=== PATIENT | female | born 1990 | race Caucasian/White ===

== ENCOUNTER 2019-02-13 17:56 | Inpatient (IN) ==
[2019-02-13] MEDS ORDERED: OXYTOCIN 30 UNITS/500 ML BAG IV PRN (18:40)
--- NOTE | 2019-02-13 18:44 | History & Physical Report ---
Date of Service February 13, 2019 Assessment & Plan (1) Normal labor and delivery: Term with GBS neg, in labor. Epidural on request. Exp mgmt for now. Present on Admission?: Yes History of Present Illness Chief Complaint: Contractions Primary Care Provider: Renae Mccallum DO 28yo presents at 40 2/7 with contractions every 5 min lasting 1 min and painful. No LOF, no VB, +FM. Preg with GBS neg and Rh neg. Allergies Allergy/AdvReac Type Severity Reaction Status Date / Time No Known Allergies Allergy Unverified 02/13/19 18:14 Home Medications Home Medications Medication Instructions Recorded Confirmed Type lifitegrast [Xiidra] 1 drp OPHTHALMIC (EYE) BID 02/13/19 02/13/19 History vit no.229-yjys-nfrkh 1 tab PO DAILY 02/13/19 02/13/19 History [ Vitamin] valacyclovir [Valtrex] 500 mg PO DAILY 02/13/19 02/13/19 History Patient History Medical History Infertility PCOS (polycystic ovarian syndrome) [place] teeth extracted Social History Preferred Language: [place] Communication Ability: Effective Playground Director Required: No Beliefs That Will Affect Care: None marital status: Sal Silveira Current Living Situation: Spouse Other Information That Helps Us Care for You: No Feels Safe at Home: Yes Safety Concerns: Feels Safe At This Time Smoking Status: Never smoker Hx Alcohol Use: No Hx Substance Use: No Review of Systems All systems reviewed & are unremarkable except as noted in HPI & below Physical Exam 2 Constitutional: WD/WN, vitals as above Eyes: PERRL, conjunctivae normal, anicteric sclerae ENMT: external ear and nose normal, oropharynx normal Neck: supple Respiratory: normal respiratory effort and able to speak in complete se ntences; no respiratory distress Cardiovascular: Rate/Rhythm: regular rate and regular rhythm Extremities: + pedal edema Gastrointestinal (Abdomen): Gravid / AGA, nontender Musculoskeletal: no cyanosis or clubbing, extremities motor strength 5/5 Skin: no rashes, warm and dry Neurologic: patellar DTR's 2+ bilat, sensation intact Psychiatric: A+Ox3, euthymic affect Genitourinary: Speculum/Bimanual Exam: no vaginal lesions, no vaginal bleeding and uterus nontender OB Exam Abdomen: + vertex, + estimated weight (7) and + regular contractions (Q4-5) Manual OB Exam: + cervical dilation 4 cm, + cervical effacement 100% and + station -2 OB Exam Monitor Tracing: + external FHT monitor used, + external uterine monitor used and + category I Lymphatic: no cervical or axillary lymphadenopathy Results & Data Vital Signs (Past 12 Hours) Vital Signs Temp Pulse Resp BP 02/13/19 18:15 37.0 C 20 02/13/19 18:02 77 125/76
[2019-02-13 19:06] LABS: Hematocrit (blood only) 37.5 % (37-47); Hemoglobin 12.9 g/dL (12.0-16.0); Mean Corpuscular Volume 84.8 fL (80-100); Mean Platelet Volume 9.5 fL (7.4-10.4); Platelet Count 163 K/uL (130-400); RDW Coefficient of Variation 13.9 % (11.5-14.5); RDW Standard Deviation 42.8 fL (36.4-46.3); Red Blood Count 4.42 M/uL (4.2-5.4); White Blood Count 13.67 K/uL (4.8-10.8)
[2019-02-13 19:22] LABS: Mean Corpuscular Hgb Conc 34.4 g/dL (32-36)
--- NOTE | 2019-02-13 19:59 | Delivery Summary ---
Vaginal Delivery Summary Date of Service February 13, 2019 Vaginal Delivery Summary DIAGNOSES: 1. Ashraf intrauterine at term gestation. 2. PROM/IOL. 3. Group B Streptococcus Neg. PROCEDURE: Spontaneous vaginal delivery and repair of 2nd degree laceration. SURGEON: Ashlie Head MD. LINE LEAD: None. ESTIMATED BLOOD LOSS: 500 mL. COMPLICATIONS: None. PLACENTA: Spontaneous and intact with a 3-vessel cord. DISPOSITION: Stable to labor and delivery. DESCRIPTION: The patient pushed well and brought the head to in OA position. The infant's head was allowed to deliver with contraction force and no further active pushing, with the perineum protected during this time. The shoulders delivered easily with a maternal pushing effort. There was no nuchal cord. The right shoulder was anterior. The shoulders and body delivered with Jocelin position and one additional pushing effort, and the was placed on the maternal abdomen. It was vigorous and moving all extremities, and making respiratory efforts. The cord was doubly clamped by the MD and then cut by the FOB. The placenta delivered spontaneously and was noted to be intact and with a 3VC. The cervix, vagina and perineum were examined and were found to have a second degree laceration, which was repaired in the usual manner with vicryl suture including a crown suture to rebuild the perineal body, and a rectal exam to rule out injury or suture. The fundus was firm and lochia minimal immediately after delivery.
--- NOTE | 2019-02-13 20:42 | Labor Progress Brief Note ---
Date of Service February 13, 2019 Subjective Reason For Note: Routine Evaluation Tolerating Contractions Assessment & Plan (1) Normal labor and delivery: Continues to progress spontaneously, fluid now leaking clear, and epidural not yet desired. Present on Admission?: Yes Physical Exam Genitourinary: Manual OB Exam: + cervical dilation 6 cm, + cervical effacement 100%, + station -1 and + amniotic fluid (SROM during exam) clear OB Exam Monitor Tracing: + external FHT monitor used, + external uterine monitor used and + category I Results & Data Vital Signs (Past 12 Hours) Vital Signs Temp Pulse Resp BP 02/13/19 19:00 20 02/13/19 18:30 18 02/13/19 18:15 37.0 C 20 02/13/19 18:02 77 125/76
[2019-02-13] MEDS: LACTATED RINGER'S 1,000 ML IV PRN ×2 (21:08→22:14)
[2019-02-13] MEDS ORDERED: ePHEDrine sulfate 50 MG/ML AMP ONE ×2 (21:09→22:09)
[2019-02-13] MEDS ORDERED: BUPIVACAINE 0.25% 30 ML VIAL ONE ×2 (21:09→22:09)
[2019-02-13] MEDS ORDERED: fentaNYL 2MCG/ML ROPIV 1.25MG/ML 100 ML BAG EPI ONE ×2 (21:10→22:10)
[2019-02-13] MEDS ORDERED: fentaNYL citrate 100 MCG/2 ML VIAL ONE ×2 (21:10→22:10)
[2019-02-13] MEDS ORDERED: ePHEDrine sulfate 50 MG/ML AMP IV PRN (22:16)
[2019-02-13] MEDS ORDERED: NALOXONE HCL 0.4 MG/1 ML VIAL/CARP IV PRN (22:16)
[2019-02-13] MEDS ORDERED: fentaNYL 2MCG/ML ROPIV 1.25MG/ML 100 ML BAG EPI PRN (22:16)
[2019-02-13] MEDS ORDERED: NALBUPHINE HCL INJ 10 MG/ML AMP IV PRN (22:16)
[2019-02-13] MEDS ORDERED: PROMETHAZINE HCL 6.25 MG in SODIUM CHLORIDE 0.9% 50 ML IV PRN (22:16)
[2019-02-13] MEDS ORDERED: ONDANSETRON INJ 2 MG/ML 2 ML VIAL IV PRN (22:16)
[2019-02-13] MEDS ORDERED: NALOXONE HCL 1 MG in SODIUM CHLORIDE 0.9% 1000ML 1,000 ML IV PRN (22:16)
[2019-02-13] MEDS ORDERED: DiphenhydrAMINE HCL 50 MG/ML VIAL IV PRN (22:16)
--- NOTE | 2019-02-13 22:16 | Anesthesiology Consultation ---
Date of Service February 13, 2019 @ 40.2 Assessment & Plan (1) Encounter for pre-operative examination: Chart Review Chart Review: Acceptable Risk for Surgery and Patient NOT seen in Pre Admission Testing Consults Requested none ASA ASA2 Proposed Anesthesia Anesthesia Type: Labor Epidural Risk / Benefits Reviewed With: PT / POA / Parent / Guardian, Accepts Plan and Informed Consent Obtained History Height/Weight Height: 5 ft 6 in Weight: 83.007 kg Allergies Allergy/AdvReac Type Severity Reaction Status Date / Time No Known Allergies Allergy Unverified 02/13/19 18:14 Medications Home Medications Medication Instructions Recorded Confirmed Last Taken lifitegrast [Xiidra] 1 drp OPHTHALMIC (EYE) BID 02/13/19 02/13/19 02/13/19 vit no.052-lzoh-piean 1 tab PO DAILY 02/13/19 02/13/19 02/13/19 [ Vitamin] valacyclovir [Valtrex] 500 mg PO DAILY 02/13/19 02/13/19 02/13/19 Active Medications Generic Name Dose Route Start Last Admin Trade Name Didier PRN Reason Stop Dose Admin Lactated Ringer's 1,000 mls @ 125 mls/hr 02/13/19 18:40 02/13/19 22:14 Lr IV 02/15/19 18:39 999 mls/hr .Q8H PRN Administration L&D Protocol Protocol NPO Date Last Intake of Fluids: 02/13/19 Time Last Intake of Fluids: 20:00 Date Last Intake of Solids: 02/13/19 Time Last Intake of Solids: 12:00 Past Medical History Medical History Infertility PCOS (polycystic ovarian syndrome) [place] teeth extracted Exercise / Class Metabolic Activity II 4-5 Yardwork/Stairs/Walk up hill Past Anesthesia History No Hx of Anesthesia Complications and No Family Hx of Anesthesia Complications History of PONV No Hx of PONV and No Hx of Motion Sickness Social History Smoking Status: Never smoker Hx Alcohol Use: No Hx Substance Use: No substance use type: does not use Physical Exam Vital Signs Last Vital Signs Temp 37.0 C 02/13/19 18:15 Pulse 85 02/13/19 22:13 Resp 20 02/13/19 21:30 BP 102/62 02/13/19 22:13 Pulse Ox 97 02/13/19 22:10 ENMT Mouth: no dentition abnormality Thyromental Distance: > or= 3.5 Finger Breadths Mallampati Class: II Neck normal visual inspection Respiratory normal respiratory effort Auscultation: lungs clear to auscultation bilaterally Cardiovascular Rate/Rhythm: regular rate and regular rhythm Psychiatric Orientation: alert Testing Laboratory Results 02/13/19 18:53
--- NOTE | 2019-02-14 01:39 | Labor Progress Brief Note ---
Date of Service February 14, 2019 Subjective Comfortable with epidural Assessment & Plan (1) Normal labor and delivery: Continue second stage Present on Admission?: Yes Physical Exam Physical Exam: Complete and pushing effectively. scalp visible with pushes. FHT appropriate for second stage. Results & Data Vital Signs (Past 12 Hours) Vital Signs Temp Pulse Resp BP Pulse Ox 02/14/19 01:31 107 H 97 02/14/19 01:28 117 H 103/59 L 02/14/19 01:13 116 H 114/72 02/14/19 01:00 98 H 97 02/14/19 00:59 121 H 142/90 H 85 L 02/14/19 00:55 107 H 93 02/14/19 00:54 100 H 84 L 02/14/19 00:50 104 H 99 02/14/19 00:46 108 H 86 L 02/14/19 00:45 104 H 99 02/14/19 00:43 115 H 115/82 02/14/19 00:40 109 H 99 02/14/19 00:35 89 99 02/14/19 00:30 82 97 02/14/19 00:29 68 102/54 L 02/14/19 00:25 79 98 02/14/19 00:20 76 98 02/14/19 00:15 73 97 02/14/19 00:13 75 111/55 L 02/14/19 00:10 74 99 02/14/19 00:05 73 98 02/14/19 00:00 91 H 99 02/13/19 23:58 84 152/68 H 02/13/19 23:55 80 97 02/13/19 23:50 81 97 02/13/19 23:45 71 97 02/13/19 23:43 77 144/67 H 02/13/19 23:40 77 98 02/13/19 23:35 88 98 02/13/19 23:30 73 97 02/13/19 23:29 60 148/67 H 02/13/19 23:25 66 96 02/13/19 23:20 66 97 02/13/19 23:15 84 98 02/13/19 23:14 67 138/63 02/13/19 23:10 81 99 02/13/19 23:05 76 99 02/13/19 23:00 91 H 20 100 02/13/19 22:57 74 133/61 02/13/19 22:55 70 135/62 99 02/13/19 22:53 37.0 C 78 18 127/58 L 02/13/19 22:51 77 126/59 L 02/13/19 22:50 83 100 02/13/19 22:49 78 127/59 L 02/13/19 22:47 89 128/61 02/13/19 22:45 84 127/62 99 02/13/19 22:43 80 127/56 L 02/13/19 22:41 75 131/61 02/13/19 22:40 74 98 02/13/19 22:39 76 131/61 02/13/19 22:37 80 123/58 L 02/13/19 22:35 85 124/60 99 02/13/19 22:33 82 117/56 L 02/13/19 22:31 74 128/56 L 02/13/19 22:30 80 20 134/63 98 02/13/19 22:25 87 98 02/13/19 22:20 88 99 02/13/19 22:17 87 111/49 L 02/13/19 22:15 36.9 C 81 97/56 L 99 02/13/19 22:13 85 102/62 02/13/19 22:11 75 102/56 L 02/13/19 22:10 80 97 02/13/19 22:09 86 99/58 L 02/13/19 22:07 81 92/55 L 02/13/19 22:05 82 105/59 L 97 02/13/19 22:03 92 H 113/67 02/13/19 22:01 89 94 02/13/19 22:00 85 20 96 02/13/19 21:56 96 H 115/70 02/13/19 21:55 91 H 98 02/13/19 21:30 20 02/13/19 21:00 18 02/13/19 20:30 18 02/13/19 19:00 20 02/13/19 18:30 18 02/13/19 18:15 37.0 C 20 02/13/19 18:02 77 125/76
[2019-02-14] MEDS ORDERED: OXYTOCIN 30 UNITS/500 ML BAG IV PRN (02:58)
[2019-02-14] MEDS ORDERED: BISACODYL 10 MG SUPP PR PRN (02:58)
[2019-02-14] MEDS ORDERED: SUPERCREAM 0.870% 15 GM JAR EXT PRN (02:58)
[2019-02-14] MEDS ORDERED: HYDROCORTISONE ACETATE 25 MG SUPP PR PRN (02:58)
[2019-02-14] MEDS ORDERED: BENZOCAINE 20% AER SPR 82.5 GM CAN EXT PRN (02:58)
[2019-02-14] MEDS ORDERED: ACETAMINOPHEN 325 MG TAB PO PRN (02:58)
[2019-02-14] MEDS ORDERED: DIPHTHERIA/TETANUS/PERTUSSIS 0.5 ML SYR/VIAL IM ONE (02:58)
--- NOTE | 2019-02-14 03:54 | Anesthesia Procedure Note ---
Date of Service February 14, 2019 Anesthesia Post Epidural Note Vital Signs Vital Signs: Temp Pulse Resp BP Pulse Ox 36.8 C 77 18 107/63 98 02/14/19 02:04 02/14/19 03:49 02/14/19 02:48 02/14/19 03:49 02/14/19 02:01 Pain Intensity Lower Abdomen: Pain Intensity: 0 Notes Mental Status: alert / awake / arousable Patient Amnestic to Procedure: Yes Nausea / Vomiting: adequately controlled Pain: adequately controlled Airway Patency, RR, SpO2: stable & adequate BP & HR: stable & adequate Hydration State: stable & adequate Neuraxial Anesthesia: was administered and sensory block resolved Anesthetic Complications: no major complications apparent and Pt Satisfied with anesthetic care Epidural: Removed without complications and With tip intact
--- NOTE | 2019-02-14 04:30 | Delivery Summary ---
Vaginal Delivery Summary Date of Service February 14, 2019 Vaginal Delivery Summary DIAGNOSES: 1. Ashraf intrauterine at term gestation. 2. Spontaneous onset of labor. 3. Group B Streptococcus Neg. PROCEDURE: Spontaneous vaginal delivery without laceration. SURGEON: Ashlie Head MD. ELECTRICAL MACHINE BUILDER: None. ESTIMATED BLOOD LOSS: 250 mL. COMPLICATIONS: None. PLACENTA: Spontaneous and intact with a 3-vessel cord. DISPOSITION: Stable to labor and delivery. DESCRIPTION: The patient pushed well and brought the head to in OA position. The infant's head was allowed to deliver with contraction force and no further active pushing, with the perineum protected during this time. The shoulders delivered easily with a maternal pushing effort. There was no nuchal cord. The shoulders and body delivered without any difficulty, and the infant was placed on the maternal abdomen. It was vigorous and moving all extremities, and making respiratory efforts. The cord was doubly clamped by the MD and then cut by the FOB. The placenta delivered spontaneously and was noted to be intact and with a 3VC. The cervix, vagina and perineum were examined and were found to be without defect requiring repair. The fundus was firm and lochia minimal immediately after delivery.
[2019-02-14] MEDS: PRENATAL VITAMIN 1 TAB PO SCH (08:00)
[2019-02-14] MEDS: DOCUSATE SODIUM 100 MG CAP PO SCH ×2 (08:00→20:12)
[2019-02-14] MEDS: IBUPROFEN 600 MG TAB PO PRN (16:06)
--- NOTE | 2019-02-15 06:39 | Obstetrical Progress Note ---
Date of Service <Priya Morales MD - Last Filed: 02/15/19 06:43> February 15, 2019 Assessment & Plan <Priya Morales MD - Last Filed: 02/15/19 06:43> (1) Normal labor and delivery: Subjective <Priya Morales MD - Last Filed: 02/15/19 06:43> PPD 1 Pt Seen at bedside while . Sitting comfortably, no overnight events. Abdominal pain 4/10 while , negligible otherwise. Has not been up to ambulate yet. Has passed gas, no bowel movements. No dysuria. Constitutional: no fever and no chills Respiratory: no chest congestion and no dyspnea Cardiovascular: no chest pain, no edema and no calf pain Gastrointestinal: + abdominal pain; no nausea, no vomiting and no constipation Genitourinary (female): no dysuria Physical Exam <Priya Morales MD - Last Filed: 02/15/19 06:43> Constitutional WD/WN, vitals as above healthy appearing and comfortable Respiratory normal respiratory effort, lungs clear to auscultation no respiratory distress Auscultation: no crackles, no rales, no rhonchi and no wheezes Cardiovascular RRR, no murmur, no edema Gastrointestinal (Abdomen) Inspection/Auscultation: abdomen normal to inspection, + abdomen distended and normal bowel sounds Percussion/Palpation: abdomen nontender Genitourinary Speculum/Bimanual Exam: + uterus enlarged; uterus nontender OB Exam Abdomen: + fundal height Fundus: + firm and + relation to umbilicus (inferior to umbilicus) Results & Data <Priya Morales MD - Last Filed: 02/15/19 06:43> Vital Signs (Past 12 Hours) Vital Signs Temp Pulse Resp BP Pulse Ox 02/15/19 00:10 36.7 C 67 16 99/62 L 96 02/14/19 19:20 36.6 C 87 18 111/72 97 <Jessica Chowdary MD, FACOG - Last Filed: 02/15/19 07:28> Co-Signing Physician Notes Resident Physician Supervision Note: I interviewed and examined the patient. Discussed with Dr. Morales and agree with findings and plan as documented in the note. Any exceptions or clarifications are listed here: [None] Documented By: Jessica Chowdary MD, FACOG
[2019-02-15 07:20] LABS: Hematocrit (blood only) 36.8 % (37-47); Hemoglobin 12.4 g/dL (12.0-16.0); Mean Corpuscular Volume 86.6 fL (80-100); Mean Platelet Volume 9.5 fL (7.4-10.4); Platelet Count 145 K/uL (130-400); RDW Coefficient of Variation 14.4 % (11.5-14.5); Red Blood Count 4.25 M/uL (4.2-5.4)
[2019-02-15 07:28] LABS: Mean Corpuscular Hgb Conc 33.7 g/dL (32-36)
[2019-02-15] MEDS: IBUPROFEN 600 MG TAB PO PRN ×4 (08:31→19:50)
[2019-02-15] MEDS: PRENATAL VITAMIN 1 TAB PO SCH (08:31)
[2019-02-15] MEDS: DOCUSATE SODIUM 100 MG CAP PO SCH ×2 (08:31→19:49)
[2019-02-15] MEDS ORDERED: BISACODYL 5 MG TABEC PO SCH (20:00)
[2019-02-16] MEDS: IBUPROFEN 600 MG TAB PO PRN ×2 (05:47→13:23)
[2019-02-16 06:50] LABS: Hematocrit (blood only) 36.1 % (37-47); Hemoglobin 11.9 g/dL (12.0-16.0)
--- NOTE | 2019-02-16 07:55 | Obstetrical Progress Note ---
Date of Service <Priya Morales MD - Last Filed: 02/16/19 07:54> February 16, 2019 Assessment & Plan <Priya Morales MD - Last Filed: 02/16/19 07:54> (1) Normal labor and delivery: Subjective <Priya Morales MD - Last Filed: 02/16/19 07:54> Ambulation: ambulating normally Voiding: no voiding problems Passing Gas:: Yes Diet Tolerance:: regular diet Lochia:: Small Feeding Type:: breast feeding Constitutional: no fever, no chills and no weakness Respiratory: no cough, no dyspnea and no pain on inspiration Cardiovascular: + edema; no chest pain, no chest pain at rest and no calf pain Breast: no breast pain Gastrointestinal: + abdominal pain; no nausea, no vomiting, no constipation and no diarrhea/loose stools Genitourinary (female): no dysuria Physical Exam <Priya Morales MD - Last Filed: 02/16/19 07:54> Constitutional WD/WN, vitals as above healthy appearing and comfortable Respiratory normal respiratory effort, lungs clear to auscultation no respiratory distress Auscultation: no crackles, no rales, no rhonchi and no wheezes Cardiovascular RRR, no murmur, no edema Gastrointestinal (Abdomen) Inspection/Auscultation: abdomen normal to inspection, + abdomen distended and normal bowel sounds Percussion/Palpation: abdomen nontender Genitourinary Speculum/Bimanual Exam: + uterus enlarged; uterus nontender OB Exam Abdomen: + fundal height Fundus: + firm and + relation to umbilicus (inferior to umbilicus) Results & Data <Priya Morales MD - Last Filed: 02/16/19 07:54> Vital Signs (Past 12 Hours) Vital Signs Temp Pulse Resp BP 02/15/19 23:40 36.6 C 58 L 18 103/67 <Mirlande Collado DO - Last Filed: 02/16/19 08:03> Co-Signing Physician Notes Resident Physician Supervision Note: I interviewed and examined the patient. Discussed with Dr. Morales and agree with findings and plan as documented in the note. Any exceptions or clarifications are listed here: PPD#2 doing well. DC home today. Documented By: Mirlande Collado DO
[2019-02-16] MEDS: DOCUSATE SODIUM 100 MG CAP PO SCH (08:23)
[2019-02-16] MEDS: PRENATAL VITAMIN 1 TAB PO SCH (08:23)
== END 2019-02-16 13:20 | disposition home or self-care (01) | DRG 807 ==
LOC: OPB 17:56 → 4S1 17:57 → 4S2 02-14 05:24

== ENCOUNTER 2021-08-11 07:44 | Inpatient (IN) ==
[2021-08-11] MEDS ORDERED: OXYTOCIN 30 UNITS/500 ML BAG IV PRN ×3 (09:36→16:03)
--- NOTE | 2021-08-11 09:40 | History & Physical Report ---
Date of Service August 11, 2021 Assessment & Plan (1) : Plan: Admit for IOL. EFM/toco/labs. IV. Will plan for epidural at some point. Agreeable to begin pitocin to obtain better contraction pattern. Admission and Anticipated Discharge Date Admission Date: August 11, 2021 History of Present Illness Chief Complaint: IOL Primary Care Provider: Renae Mccallum DO 31yo @ 40 08/24, IOL for postdates. + movement, no vaginal bleeding, no leaking fluid. Hypothyroid *Check TFTs Q4wks(recurring order) Conceived on Femara Genital HSV--valtrex at 36wks Rh neg Rhogam given 05/19/21 SB had covid vaccinex2, and booster Marginal cord insertion. Flu vaccine received 04/20 OC IOL 08/11 Allergies Allergy/AdvReac Type Severity Reaction Status Date / Time No Known Drug Allergies Allergy Verified 08/10/21 12:54 Home Medications Medication Instructions Recorded Confirmed Type prenat.vits,lakisha,ict-hbut-kovfi 1 tab PO DAILY 12/24/20 08/11/21 History valacyclovir 500 mg tablet 500 mg PO BID #60 tab 06/17/21 08/11/21 Rx (Valtrex) levothyroxine 75 mcg tablet 75 mcg PO .COMPLEX #110 tab 07/16/21 08/11/21 Rx Patient History Medical History (Updated 08/11/21 @ 09:39 by Mirlande Collado DO) History of chicken pox Infertility PCOS (polycystic ovarian syndrome) Surgical History [place] teeth extracted Family History (Updated 12/24/20 @ 14:12 by Kristina Child) Grandmother (Paternal) Breast cancer Brother FH: testicular cancer Denies family history of Ovarian cancer Colorectal cancer Social History (Updated 12/24/20 @ 14:13 by Kristina Child) Smoking Status: Never smoker Hx Alcohol Use: No Hx Substance Use: No Preferred Language: Bengali Communication Ability: Effective 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 Beliefs That Will Affect Care: None marital status: marital status details: Sal Silveira (33) [phone] Current Living Situation: Family Current Living Situation Comment: lives with spouse, daughter, dog current occupational status: employed 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 Other Information That Helps Us Care for You: No Feels Safe at Home: Yes Safety Concerns: Feels Safe At This Time Assistive Devices: None Review of Systems All systems reviewed & are unremarkable except as noted in HPI & below Physical Exam Physical Exam: SVE 4/100/-2 Constitutional: WD/WN, vitals as above Respiratory: normal respiratory effort, lungs clear to auscultation no respiratory distress Cardiovascular: Rate/Rhythm: regular rate and regular rhythm Gastrointestinal (Abdomen): Inspection/Auscultation: abdomen normal to inspection Percussion/Palpation: abdomen soft; abdomen nontender Gravid. No s/s chorio or abruption. Skin: no rashes, warm and dry Psychiatric: A+Ox3, euthymic affect Results & Data ([facility]) Vital Signs (Past 12 Hours) Vital Signs Temp Pulse Resp BP 08/11/21 07:58 117 H 110/70 08/11/21 07:54 37.1 C 117 H 20 110/70 Monitoring External Monitor FHT Cat 1 [place] Q 4-5 Coding Level of Care Code None Diagnoses Z34.90
[2021-08-11 09:56] LABS: Hematocrit (blood only) 35.6 % (37-47); Hemoglobin 11.8 g/dL (12.0-16.0); Mean Corpuscular Hemoglobin 28.9 pg (25-34); Mean Corpuscular Hgb Conc 33.1 g/dL (32-36); Mean Corpuscular Volume 87.3 fL (80-100); Mean Platelet Volume 9.6 fL (7.4-10.4); Platelet Count 165 K/uL (130-400); RDW Coefficient of Variation 14.3 % (11.5-14.5); RDW Standard Deviation 45.1 fL (36.4-46.3); Red Blood Count 4.08 M/uL (4.2-5.4); White Blood Count 13.87 K/uL (4.8-10.8)
[2021-08-11] MEDS: LACTATED RINGER'S 1,000 ML IV PRN ×2 (10:02→12:44)
[2021-08-11] MEDS ORDERED: ePHEDrine sulfate 50 MG/ML AMP ONE (12:09)
[2021-08-11] MEDS ORDERED: SODIUM CHLORIDE 0.9% INJ 10 ML VIAL ONE (12:09)
[2021-08-11] MEDS ORDERED: BUPIVACAINE 0.25% 30 ML VIAL ONE (12:09)
[2021-08-11] MEDS ORDERED: fentaNYL 2MCG/ML ROPIVACAINE 1.25MG/ML 100 ML BAG EPI ONE (12:10)
[2021-08-11] MEDS ORDERED: fentaNYL citrate 100 MCG/2 ML VIAL ONE (12:10)
[2021-08-11] MEDS ORDERED: ONDANSETRON INJ 2 MG/ML 2 ML VIAL IV PRN (12:22)
[2021-08-11] MEDS ORDERED: ePHEDrine sulfate 50 MG/ML AMP IV PRN (12:22)
[2021-08-11] MEDS ORDERED: NALOXONE HCL 0.4 MG/1 ML VIAL/CARP IV PRN (12:22)
[2021-08-11] MEDS ORDERED: NALBUPHINE HCL INJ 10 MG/ML AMP IV PRN (12:22)
[2021-08-11] MEDS ORDERED: fentaNYL 2MCG/ML ROPIVACAINE 1.25MG/ML 100 ML BAG EPI PRN (12:22)
[2021-08-11] MEDS ORDERED: NALOXONE HCL 1 MG in SODIUM CHLORIDE 0.9% 1000ML 1,000 ML IV PRN (12:22)
[2021-08-11] MEDS ORDERED: diphenhydrAMINE 50 MG/ML VIAL IV PRN (12:22)
--- NOTE | 2021-08-11 12:26 | Anesthesiology Consultation ---
Date of Service August 11, 2021 Assessment & Plan (1) Encounter for pre-operative examination: Chart Review Chart Review: Patient NOT seen in Pre Admission Testing and Acceptable Risk for Labor Epidural Consults Requested none History Height/Weight Height: 5 ft 6 in Weight: 84.368 kg Allergies Allergy/AdvReac Type Severity Reaction Status Date / Time No Known Drug Allergies Allergy Verified 08/10/21 12:54 Medications Home Medications Medication Instructions Recorded Confirmed Last Taken prenat.vits,lakisha,unv-yvnv-iacji 1 tab PO DAILY 12/24/20 08/11/21 Unknown valacyclovir 500 mg tablet 500 mg PO BID #60 tab 06/17/21 08/11/21 Unknown (Valtrex) levothyroxine 75 mcg tablet 75 mcg PO .COMPLEX #110 tab 07/16/21 08/11/21 Unknown Active Medications Generic Name Dose Route Start Last Admin Trade Name Freq PRN Reason Stop Dose Admin Oxytocin 30 units in 500 mls @ 7 mls/hr 08/11/21 09:36 08/11/21 11:59 Pitocin IV 08/13/21 09:35 0.42 units/hr .Q24H PRN 7 mls/hr Labor Induction/Augmentation Titration Protocol 0.42 UNITS/HR Lactated Ringer's 1,000 mls @ 125 mls/hr 08/11/21 09:36 08/11/21 12:07 Lr IV 08/13/21 09:35 999 mls/hr .Q8H PRN Infusion L&D Protocol Protocol Past Medical History Medical History History of chicken pox Infertility PCOS (polycystic ovarian syndrome) Exercise / Class Metabolic Activity II 4-5 Yardwork/Stairs/Walk up hill Past Family History Family History Grandmother (Paternal) Breast cancer Brother FH: testicular cancer Denies family history of Ovarian cancer Colorectal cancer Past Surgical History Surgical History [place] teeth extracted Past Anesthesia History No Hx of Anesthesia Complications and No Family Hx of Anesthesia Complications History of PONV No Hx of PONV and No Hx of Motion Sickness Social History Smoking Status: Never smoker Hx Alcohol Use: No Hx Substance Use: No substance use type: does not use and former substance user Physical Exam Vital Signs Last Vital Signs Temp 36.8 C 08/11/21 11:00 Pulse 90 08/11/21 12:41 Resp 20 08/11/21 11:00 BP 124/77 08/11/21 12:06 Pulse Ox 99 08/11/21 12:41 Testing Laboratory Results 08/11/21 09:44
--- NOTE | 2021-08-11 14:53 | Labor Progress Brief Note ---
Date of Service August 11, 2021 Subjective Comfortable with epidural. FHT Cat 1 [place] Q 2 SVE 8/100/-1 AROM clear fluid. Anticipate . Assessment & Plan Admission and Anticipated Discharge Date Admission Date: August 11, 2021 Results & Data ([facility]) Vital Signs (Past 12 Hours) Vital Signs Temp Pulse Resp BP Pulse Ox 08/11/21 14:51 85 08/11/21 14:48 99 H 111/78 08/11/21 14:46 86 98 08/11/21 14:41 78 98 08/11/21 14:36 77 98 08/11/21 14:33 68 110/68 08/11/21 14:31 74 98 08/11/21 14:26 74 98 08/11/21 14:21 73 99 08/11/21 14:18 72 108/65 08/11/21 14:16 69 100 08/11/21 14:11 72 98 08/11/21 14:06 75 98 08/11/21 14:03 71 20 105/58 L 08/11/21 14:01 65 99 08/11/21 13:56 69 98 08/11/21 13:51 79 97 08/11/21 13:48 70 109/61 08/11/21 13:46 73 99 08/11/21 13:41 72 98 08/11/21 13:36 70 97 08/11/21 13:31 76 97 08/11/21 13:29 68 108/63 08/11/21 13:26 66 98 08/11/21 13:24 71 111/62 08/11/21 13:21 66 99 08/11/21 13:20 72 111/64 08/11/21 13:16 68 112/58 L 98 08/11/21 13:11 71 97 08/11/21 13:10 72 114/66 08/11/21 13:06 78 97 08/11/21 13:05 70 20 104/61 08/11/21 13:01 74 98 08/11/21 12:57 80 18 117/72 08/11/21 12:56 89 97 08/11/21 12:55 74 109/64 08/11/21 12:53 83 115/66 08/11/21 12:51 83 110/67 95 08/11/21 12:49 80 110/64 08/11/21 12:48 89 94 08/11/21 12:47 81 108/62 08/11/21 12:46 80 96 08/11/21 12:45 82 110/64 08/11/21 12:43 74 115/68 08/11/21 12:42 80 113/70 08/11/21 12:41 90 99 08/11/21 12:36 89 99 08/11/21 12:31 96 H 99 08/11/21 12:26 89 97 08/11/21 12:25 91 H 94 08/11/21 12:21 86 96 08/11/21 12:17 86 93 08/11/21 12:16 86 94 08/11/21 12:11 94 H 96 08/11/21 12:06 92 H 124/77 98 08/11/21 11:00 36.8 C 86 20 122/69 08/11/21 07:58 117 H 110/70 08/11/21 07:54 37.1 C 117 H 20 110/70 Coding Level of Care Code None
--- NOTE | 2021-08-11 15:35 | Delivery Summary ---
Vaginal Delivery Summary Date of Service August 11, 2021 Vaginal Delivery Summary [facility] Vaginal Delivery Summary: Pre-delivery diagnoses: 31yo @ 40 08/24, IOL for postdates, hypothyroidism, conception on Femara Post-delivery diagnoses: same Procedure: spontaneous vaginal delivery Surgeon: Mirlande Collado DO Complications: none Findings: Viable male . Apgars and weight pending, please see nursery records. Estimated blood loss: 300ml Description of delivery: The patient progressed to complete with epidural anesthesia. She then began to push. She spontaneously vaginally delivered a viable from the cephalic presentation. The head delivered in ROMMEL position. The anterior shoulder and arm delivered, followed by the posterior shoulder, followed by the body. The baby was placed on mother's abdomen and a spontaneous cry was heard. Delayed cord clamping was employed, and the cord was doubly clamped and cut. Cord blood was obtained. The placenta was delivered spontaneously intact with a 3-vessel cord. The uterus and vagina were swept of clots and debris. IV pitocin was given. The uterus became firm. The cervix, vagina, and perineum were inspected and no lacerations were noted. Excellent hemostasis was observed. The mother and baby are recovering in stable and good condition in the room. Sponge and instrument counts were correct x 2. Mirlande Collado DO [facility] Vag[facility] Delivery Charge Vaginal Delivery Codes: 19579 global code for the antepartum, delivery, and post- Delivery Type Details: [facility]
--- NOTE | 2021-08-11 16:02 | Anesthesia Procedure Note ---
Date of Service August 11, 2021 Anesthesia Post Epidural Note Vital Signs Vital Signs: Temp Pulse Resp BP Pulse Ox 36.8 C 78 20 115/59 L 99 08/11/21 14:48 08/11/21 15:47 08/11/21 14:48 08/11/21 15:47 08/11/21 15:31 Pain Intensity Bilateral Lower Abdomen: Pain Intensity: 3 Notes Mental Status: alert / awake / arousable and participated in evaluation Patient Amnestic to Procedure: No Nausea / Vomiting: adequately controlled Pain: adequately controlled Airway Patency, RR, SpO2: stable & adequate BP & HR: stable & adequate Hydration State: stable & adequate Neuraxial Anesthesia: was administered and sensory block is resolving Anesthetic Complications: no major complications apparent and Pt Satisfied with anesthetic care Epidural: Removed without complications and With tip intact
[2021-08-11] MEDS ORDERED: bisacodyL 10 MG SUPP PR PRN (16:03)
[2021-08-11] MEDS ORDERED: HYDROCORTISONE ACETATE 25 MG SUPP PR PRN (16:03)
[2021-08-11] MEDS ORDERED: SUPERCREAM 0.870% 15 GM JAR EXT PRN (16:03)
[2021-08-11] MEDS ORDERED: ACETAMINOPHEN 325 MG TAB PO PRN (16:03)
[2021-08-11] MEDS ORDERED: DIPHTHERIA/TETANUS/PERTUSSIS 0.5 ML SYR/VIAL IM ONE (16:03)
[2021-08-11] MEDS ORDERED: BENZOCAINE 20% AER SPR 82.5 GM CAN EXT PRN (16:03)
[2021-08-11] MEDS: DOCUSATE SODIUM 100 MG CAP PO SCH (21:00)
[2021-08-12] MEDS: IBUPROFEN 600 MG TAB PO PRN ×3 (02:30→19:18)
--- NOTE | 2021-08-12 06:33 | Obstetrical Progress Note ---
Date of Service <Alvaro Barrios DO - Last Filed: 08/12/21 07:30> August 12, 2021 Assessment & Plan <Alvaro Barrios DO - Last Filed: 08/12/21 07:30> (1) Encounter for care and examination after delivery: 31 yo post day 1 from vaginal delivery, doing well. -Continue routine post care. - vital signs reviewed and WNL. (Tmax 37.1) -Blood type O-, GBS Negative, Rubella Immune. -Encourage ambulation, monitor and control pain with Motrin, tylenol PRN, resume regular diet, monitor lochia. -encourage breast feeding. <Mirlande Collado, - Last Filed: 08/12/21 07:58> (1) Encounter for care and examination after delivery: Subjective <Alvaro Barrios DO - Last Filed: 08/12/21 07:30> Ambulation: ambulating normally Voiding: no voiding problems Passing Gas:: Yes Diet Tolerance:: regular diet Lochia:: Small Feeding Type:: breast feeding Current Pain Level(1-10): 0 Review of Systems Denies fever, chills, sweats Denies shortness of breath, difficulty breathing, chest pain, palpitations, chest pressure. Denies breast pain. Denies dysuria. Denies headache or changes in vision Physical Exam <Alvaro Barrios DO - Last Filed: 08/12/21 07:30> General: Alert, oriented. No acute distress. Cardiac: Regular rate and rhythm, no murmurs/rubs/gallops. Respiratory: Clear to auscultation bilaterally a/p, no wheezes/rales/rhonchi. No increased work of breathing. Symmetrical chest rise. No respiratory distress. Abdomen: Soft, nontender, nondistended. Bowel sounds present. Uterus: Uterine fundus firm, palpable 2 cm below umbilicus. Lower Extremities: No lower extremity edema or swelling. No deep calf pain. Dandy's negative bilaterally Results & Data ([facility]) <Alvaro Barrios DO - Last Filed: 08/12/21 07:30> Vital Signs (Past 12 Hours) Vital Signs Temp Pulse Resp BP Pulse Ox 08/12/21 04:25 36.5 C 60 18 114/77 97 08/11/21 23:37 36.6 C 65 18 114/73 98 08/11/21 20:26 36.7 C 75 18 108/69 97 <Mirlande Collado DO - Last Filed: 08/12/21 07:58> Co-Signing Physician Notes Resident Physician Supervision Note: I interviewed and examined the patient. Discussed with Dr. Barrios and agree with findings and plan as documented in the note. Any exceptions or clarifications are listed here: PPD#1 doing well. Desires DC home tomorrow. Continue routine care. Documented By: Mirlande Collado DO Resident Activity Tracking <Alvaro Barrios DO - Last Filed: 08/12/21 07:30> Resident Involvement: Resident Care Provided Care Provided: OB Delivery
[2021-08-12 06:41] LABS: Hematocrit (blood only) 31.1 % (37-47); Hemoglobin 10.2 g/dL (12.0-16.0); Mean Corpuscular Hemoglobin 28.7 pg (25-34); Mean Corpuscular Hgb Conc 32.8 g/dL (32-36); Mean Corpuscular Volume 87.6 fL (80-100); Mean Platelet Volume 9.5 fL (7.4-10.4); Platelet Count 158 K/uL (130-400); RDW Coefficient of Variation 14.5 % (11.5-14.5); RDW Standard Deviation 46.8 fL (36.4-46.3); Red Blood Count 3.55 M/uL (4.2-5.4); White Blood Count 12.38 K/uL (4.8-10.8)
[2021-08-12] MEDS: PRENATAL VITAMIN 1 TAB PO SCH (08:47)
[2021-08-12] MEDS: DOCUSATE SODIUM 100 MG CAP PO SCH ×2 (08:47→19:49)
[2021-08-12] MEDS ORDERED: bisacodyL 5 MG TABEC PO SCH (20:00)
[2021-08-13] MEDS: IBUPROFEN 600 MG TAB PO PRN ×2 (05:16→11:56)
--- NOTE | 2021-08-13 06:21 | Obstetrical Progress Note ---
Date of Service <Alvaro Barrios DO - Last Filed: 08/13/21 07:22> August 13, 2021 Assessment & Plan <Alvaro Barrios DO - Last Filed: 08/13/21 07:22> (1) Encounter for care and examination after delivery: 31 yo post day 1 from vaginal delivery, doing well. -Continue routine post care. -vital signs reviewed and WNL. (Tmax 37.1) -Blood type O-, GBS Negative, Rubella Immune. -Encourage ambulation, monitor and control pain with Motrin, tylenol PRN, resume regular diet, monitor lochia. -encourage breast feeding. -Discussed discharge with the patient. Patient will follow up with Dr. Collado in 6 weeks in office. <Sana Owens MD, FACOG - Last Filed: 08/13/21 07:36> (1) Encounter for care and examination after delivery: Subjective <Alvaro Barrios DO - Last Filed: 08/13/21 07:22> Ambulation: ambulating normally Voiding: no voiding problems Passing Gas:: Yes Diet Tolerance:: regular diet Lochia:: Small Feeding Type:: breast feeding Current Pain Level(1-10): 0 Review of Systems Denies fever, chills, sweats Denies shortness of breath, difficulty breathing, chest pain, palpitations, chest pressure. Denies breast pain. Denies dysuria. Denies headache or changes in vision Physical Exam <Alvaro Barrios DO - Last Filed: 08/13/21 07:22> General: Alert, oriented. No acute distress. Cardiac: Regular rate and rhythm, no murmurs/rubs/gallops. Respiratory: Clear to auscultation bilaterally a/p, no wheezes/rales/rhonchi. No increased work of breathing. Symmetrical chest rise. No respiratory distress. Abdomen: Soft, nontender, nondistended. Bowel sounds present. Uterus: Uterine fundus firm, palpable 2 cm below umbilicus. Lower Extremities: No lower extremity edema or swelling. No deep calf pain. Dandy's negative bilaterally Results & Data ([facility]) <Alvaro Barrios DO - Last Filed: 08/13/21 07:22> Vital Signs (Past 12 Hours) Vital Signs Temp Pulse Resp BP 08/12/21 23:45 36.9 C 68 18 107/68 08/12/21 19:30 36.7 C 84 20 125/66 <Sana Owens MD, FACOG - Last Filed: 08/13/21 07:36> Co-Signing Physician Notes Resident Physician Supervision Note: I interviewed and examined the patient. Discussed with Dr. Barrios and agree with findings and plan as documented in the note. Any exceptions or clarifications are listed here: Doing well. Plan d/c today. Instructions given. Documented By: Sana Owens MD, FACOG Resident Activity Tracking <Alvaro Barrios DO - Last Filed: 08/13/21 07:22> Resident Involvement: Resident Care Provided Care Provided: OB Delivery
[2021-08-13] MEDS ORDERED: LEVOTHYROXINE SODIUM 75 MCG TABLET PO SCH (06:30)
[2021-08-13 08:11] LABS: Hematocrit (blood only) 32.8 % (37-47); Hemoglobin 10.5 g/dL (12.0-16.0)
[2021-08-13] MEDS: DOCUSATE SODIUM 100 MG CAP PO SCH (08:42)
[2021-08-13] MEDS: PRENATAL VITAMIN 1 TAB PO SCH (08:42)
[2021-08-15] MEDS ORDERED: LEVOTHYROXINE SODIUM 75 MCG TABLET PO SCH (06:30)
== END 2021-08-13 12:15 | disposition home or self-care (01) | DRG 806 ==
LOC: 4S1 07:44 → 4S2 19:00